=== PATIENT | male | born 1935 | race Two or more races ===

== ENCOUNTER 2018-09-17 16:05 | Inpatient (IN) | payer OTHER, MEDICARE ==
[~2018-09-17] VITALS: Ht 160 cm; Wt 62.6 kg
[2018-09-17] MEDS ORDERED: DIPH,PERTUSS(ACELL),TET VAC/PF 0.5 ML IM-VACC ONE ×2 (16:30→23:00)
[2018-09-17] MEDS ORDERED: SODIUM CHLORIDE FLUSH 10ML SYR IVF ONE (16:30)
--- NOTE | 2018-09-17 16:35 | NUR ---
PT ARRIVES FROM HOME TODAY AFTER FALLING BACKWARD AND HITTING POSTERIOR OCCIPTIAL PORTION OF HIS HEAD. HAS LACERATION UNABLE TO VISUALIZE DUE TO HEAD. PT HAS GCS OF 12, PT RESPONDS TO VERBAL AND PAINFUL STIMULI. PT ON ARRIVAL IS TRIED, CONFUSED BUT ABLE TO ANSWER QUESTIONS APPORPTIATELY WHEN REPORIENTED. PT REPORTING SEVERE BERRY AT THIS TIME. PT HAD PIV PLACED AND TAKEN TO CT IMMEDIATELY AND CONNECTED TO ALL MONITORS. CALL LIGHT IN REACH. MD WRIGHT INFORMED OF PTS CONDITION.
[2018-09-17 17:02] LABS: BASOPHILS # (AUTO) 0.04 x10^3/uL (0-0.1); BASOPHILS % (AUTO) 0 % (0-1); EOSINOPHILS # (AUTO) 0.15 x10^3/uL (0-0.4); EOSINOPHILS % (AUTO) 1 % (1-7); LYMPHOCYTES # (AUTO) 1.59 x10^3/uL (1-3.4); LYMPHOCYTES % (AUTO) 13 % (22-44); MD NO; MEAN CORPUSCULAR HEMOGLOBIN 27.7 pg (27.5-34.5); MEAN CORPUSCULAR HGB CONC 32.9 g/dL (33.2-36.2); MEAN CORPUSCULAR VOLUME 84.3 fL (81-97); MEAN PLATELET VOLUME 8.5 fL (7.4-10.4); MONOCYTES # (AUTO) 0.87 x10^3/uL (0.2-0.8); MONOCYTES % (AUTO) 7 % (2-9); NEUTROPHILS # (AUTO) 9.59 x10^3/uL (1.8-6.8); NEUTROPHILS % (AUTO) 78 % (42-75); PLATELET COUNT 190 x10^3/uL (130-400); RED BLOOD COUNT 5.28 x10^6/uL (4.38-5.82); RED CELL DISTRIBUTION WIDTH 14.1 % (9.4-14.8)
[2018-09-17 17:05] LABS: INTERNATIONAL NORMALIZED RATIO 0.98 (0.93-1.1); PROTHROMBIN TIME 10.3 Seconds (9.6-11.5)
[2018-09-17 17:10] LABS: ALANINE AMINOTRANSFERASE 26 U/L (12-78); ANION GAP 10 mmol/L (5-15); CHLORIDE 107 mmol/L (98-107); CREATININE 1.45 mg/dL (0.7-1.3)
[2018-09-17 17:12] LABS: ALKALINE PHOSPHATASE 79 U/L (45-117); TOTAL PROTEIN 7.2 g/dL (6.4-8.2)
[2018-09-17] MEDS ORDERED: BACITRACIN ZINC OINT 500U/GM, 0.9 GM ONE (17:16)
--- NOTE | 2018-09-17 17:21 | NUR ---
WOUND DRESSED IN POSTERIOR OF HEAD. PT HAS SMALL HEMATOMA WITH SUPERFICAL ABRASIONS CAUSING MINOR BLEEDING AT THIS TIME THAT IS CONTROLLED WITH PRESSURE DRESSING.
[2018-09-17 17:49] LABS: TROPONIN I < 0.015 ng/mL (0.000-0.045)
--- NOTE | 2018-09-17 17:52 | NUR ---
BREAK NOTE: PT. REMAINS MONITORED. VSS. PT. HAS C/O BILAT SHOULDER PAIN. DISCUSSED WITH MD. PT. HAS THE HOB ELEVATED GREATER THAN 30 DEGREES. PT.'S SIDERAILS REMAIN UP X 2 WITH THE CALL LIGHT IN PLACE.
--- NOTE | 2018-09-17 19:26 | NUR ---
report called to emely noland
[2018-09-17] MEDS ORDERED: LABETALOL 5 MG/ML SYRINGE IVPush PRN (19:30)
[2018-09-17] MEDS ORDERED: LIDODERM 5% PATCH TD PRN (19:30)
[2018-09-17] MEDS ORDERED: BISACODYL 10 MG SUPP PR PRN (19:30)
[2018-09-17 19:47] VITALS: BP 154/92
[2018-09-17] MEDS ORDERED: ONDANSETRON ODT 4 MG ONE (19:52)
[2018-09-17] MEDS ORDERED: SIMV20TA3 PO (19:56)
[2018-09-17] MEDS: ONDANSETRON ODT 4 MG PO PRN (20:23)
[2018-09-17] MEDS: D5%-0.45% NACL 1,000 ML IV SCH ×2 (20:24→22:01)
[2018-09-17 23:04] LABS: TROPONIN I < 0.015 ng/mL (0.000-0.045)
[2018-09-17] MEDS ORDERED: LOSA50TA14 PO (23:20)
[2018-09-17] MEDS ORDERED: AMLO-150 PO (23:20)
[2018-09-18 01:33] VITALS: BP 110/68
[2018-09-18] MEDS: ACETAMINOPHEN 325 MG TABLET PO PRN (04:20)
[2018-09-18 06:12] LABS: BASOPHILS # (AUTO) 0.02 x10^3/uL (0-0.1); BASOPHILS % (AUTO) 0 % (0-1); EOSINOPHILS # (AUTO) 0.03 x10^3/uL (0-0.4); EOSINOPHILS % (AUTO) 0 % (1-7); LYMPHOCYTES % (AUTO) 14 % (22-44); MD NO; MEAN CORPUSCULAR HEMOGLOBIN 28.2 pg (27.5-34.5); MEAN CORPUSCULAR HGB CONC 33.3 g/dL (33.2-36.2); MEAN CORPUSCULAR VOLUME 84.8 fL (81-97); MEAN PLATELET VOLUME 8.7 fL (7.4-10.4); MONOCYTES # (AUTO) 0.93 x10^3/uL (0.2-0.8); MONOCYTES % (AUTO) 10 % (2-9); NEUTROPHILS # (AUTO) 6.79 x10^3/uL (1.8-6.8); NEUTROPHILS % (AUTO) 75 % (42-75); PLATELET COUNT 174 x10^3/uL (130-400); RED BLOOD COUNT 4.76 x10^6/uL (4.38-5.82); RED CELL DISTRIBUTION WIDTH 14.1 % (9.4-14.8)
[2018-09-18] MEDS: D5%-0.45% NACL 1,000 ML IV SCH (06:16)
[2018-09-18 06:23] LABS: CHLORIDE 109 mmol/L (98-107)
[2018-09-18 06:34] LABS: ANION GAP 7 mmol/L (5-15); CALCIUM 8.7 mg/dL (8.5-10.1); CREATININE 1.19 mg/dL (0.7-1.3); TROPONIN I < 0.015 ng/mL (0.000-0.045)
[2018-09-18] MEDS: SODIUM CHLORIDE 0.9% 1,000 ML IV SCH ×2 (07:59→21:15)
[2018-09-18 08:00] VITALS: BP 113/72
[2018-09-18] MEDS: MECLIZINE 12.5 MG TABLET PO PRN ×2 (15:28→21:15)
[2018-09-18] MEDS: ONDANSETRON ODT 4 MG PO PRN (15:31)
[2018-09-18] MEDS ORDERED: OMNIPAQUE 350 MG/ML, 100ML BOTTLE ONE (16:16)
[2018-09-18 16:22] LABS: MICROSCOPIC NOT IND
[2018-09-18 16:25] LABS: CULTURE INDICATED? NO
[2018-09-18 16:32] VITALS: BP 122/68
[2018-09-18 16:33] VITALS: BP 133/75
[2018-09-18 16:36] VITALS: BP 126/83
[2018-09-18 20:00] VITALS: BP 144/82
[2018-09-18] MEDS: SIMVASTATIN 20 MG TABLET PO SCH (21:15)
[2018-09-19] VITALS (8 sets, daily range): BP systolic 119–152; BP diastolic 68–89
[2018-09-19] MEDS: ACETAMINOPHEN 325 MG TABLET PO PRN ×2 (04:12→20:46)
[2018-09-19] MEDS: SODIUM CHLORIDE 0.9% 1,000 ML IV SCH ×3 (05:19→23:48)
[2018-09-19 06:20] LABS: BASOPHILS # (AUTO) 0.04 x10^3/uL (0-0.1); BASOPHILS % (AUTO) 1 % (0-1); EOSINOPHILS # (AUTO) 0.43 x10^3/uL (0-0.4); EOSINOPHILS % (AUTO) 6 % (1-7); LYMPHOCYTES # (AUTO) 1.81 x10^3/uL (1-3.4); LYMPHOCYTES % (AUTO) 23 % (22-44); MD NO; MEAN CORPUSCULAR HEMOGLOBIN 28.6 pg (27.5-34.5); MEAN CORPUSCULAR HGB CONC 33.8 g/dL (33.2-36.2); MEAN CORPUSCULAR VOLUME 84.4 fL (81-97); MEAN PLATELET VOLUME 8.3 fL (7.4-10.4); MONOCYTES # (AUTO) 0.79 x10^3/uL (0.2-0.8); MONOCYTES % (AUTO) 10 % (2-9); NEUTROPHILS # (AUTO) 4.73 x10^3/uL (1.8-6.8); NEUTROPHILS % (AUTO) 61 % (42-75); PLATELET COUNT 148 x10^3/uL (130-400); RED BLOOD COUNT 4.39 x10^6/uL (4.38-5.82)
[2018-09-19 06:43] LABS: CHLORIDE 113 mmol/L (98-107)
[2018-09-19 07:11] LABS: ALANINE AMINOTRANSFERASE 19 U/L (12-78); ALBUMIN 3.1 g/dL (3.4-5.0); ALKALINE PHOSPHATASE 60 U/L (45-117); ANION GAP 6 mmol/L (5-15); BILIRUBIN,TOTAL 0.8 mg/dL (0.2-1.0); CALCIUM 8.4 mg/dL (8.5-10.1); CREATININE 1.06 mg/dL (0.7-1.3); TOTAL PROTEIN 5.7 g/dL (6.4-8.2)
[2018-09-19] MEDS: SIMVASTATIN 20 MG TABLET PO SCH (20:47)
[2018-09-20 02:19] VITALS: BP 148/80
[2018-09-20 04:39] LABS: BASOPHILS # (AUTO) 0.04 x10^3/uL (0-0.1); BASOPHILS % (AUTO) 1 % (0-1); EOSINOPHILS # (AUTO) 0.55 x10^3/uL (0-0.4); EOSINOPHILS % (AUTO) 8 % (1-7); LYMPHOCYTES # (AUTO) 2.28 x10^3/uL (1-3.4); LYMPHOCYTES % (AUTO) 32 % (22-44); MD NO; MEAN CORPUSCULAR HEMOGLOBIN 28.3 pg (27.5-34.5); MEAN CORPUSCULAR HGB CONC 33.5 g/dL (33.2-36.2); MEAN CORPUSCULAR VOLUME 84.5 fL (81-97); MEAN PLATELET VOLUME 8.5 fL (7.4-10.4); MONOCYTES # (AUTO) 0.64 x10^3/uL (0.2-0.8); MONOCYTES % (AUTO) 9 % (2-9); NEUTROPHILS # (AUTO) 3.69 x10^3/uL (1.8-6.8); NEUTROPHILS % (AUTO) 51 % (42-75); PLATELET COUNT 144 x10^3/uL (130-400); RED BLOOD COUNT 4.46 x10^6/uL (4.38-5.82); RED CELL DISTRIBUTION WIDTH 13.6 % (9.4-14.8)
[2018-09-20 04:46] LABS: ALBUMIN 3.2 g/dL (3.4-5.0); ANION GAP 6 mmol/L (5-15); CALCIUM 8.3 mg/dL (8.5-10.1); CHLORIDE 111 mmol/L (98-107)
[2018-09-20 04:47] LABS: CREATININE 0.99 mg/dL (0.7-1.3)
[2018-09-20] MEDS ORDERED: ASPIRIN 81 MG TABLET EC PO SCH (06:00)
[2018-09-20 07:46] VITALS: BP 166/90
[2018-09-20] MEDS ORDERED: MECL-76 PO (08:15)
[2018-09-20] MEDS ORDERED: MECLIZINE 12.5 MG TABLET PO PRN (08:30)
[2018-09-20] MEDS: SODIUM CHLORIDE 0.9% 1,000 ML IV SCH (09:44)
== END 2018-09-20 10:59 | disposition home or self-care (01) | DRG 683 ==
LOC: ED 17:11 → EDIP 17:33 → 4WST 19:38 → DCLOUNGE 09-20 10:48
PROVIDERS: ADMIT Internal Medicine; ATTEND Internal Medicine
DX: N17.9 Acute kidney failure, unspecified (principal); S06.0X9A Concussion with loss of consciousness of unspecified duration, initial encounter; D72.828 Other elevated white blood cell count; E86.0 Dehydration; E78.00 Pure hypercholesterolemia, unspecified; E78.5 Hyperlipidemia, unspecified; I10 Essential (primary) hypertension; I95.1 Orthostatic hypotension; W18.30XA Fall on same level, unspecified, initial encounter; Y93.89 Activity, other specified; Y92.044 Garage of boarding-house as the place of occurrence of the external cause; Y99.8 Other external cause status
CPT/HCPCS: 36415; 70450; 70551; 71045; 71275; 72125; 80048; 80053; 81003; 82040; 82550; 83735; 84484; 85025; 85379; 85610; 87040; 90715; 93005; 93306; 93880; 99285; G0378; Q0162; Q9967; J7030

== ENCOUNTER → 2020-09-22 | Outpatient (CLI) | payer MEDICARE, OTHER ==
[~2020-09-22] MED LIST: AMLO-150 PO; LOSA50TA14 PO; MECL-76 PO; SIMV20TA19 PO
== END | disposition home or self-care (01) ==
LOC: RAD 13:27
PROVIDERS: ATTEND Family Medicine
DX: M47.817 Spondylosis without myelopathy or radiculopathy, lumbosacral region (principal)
CPT/HCPCS: 72110